=== PATIENT | male | born 1940 | race Two or more races ===

== ENCOUNTER 2016-07-11 01:46 | Emergency (ER) | payer MEDICARE, MEDICAID ==
[~2016-07-11] VITALS: Ht 177.8 cm; Wt 57.2 kg
[2016-07-11] MEDS ORDERED: NKM (01:55)
[2016-07-11] MEDS ORDERED: BACTRIM DS TAB1 EAC1 ORAL (02:40)
--- NOTE | 2016-07-11 02:41 | Emergency Room Report ---
History of Present Illness General Chief Complaint: Upper Extremity Injury Source: Patient Present Illness HPI This is a 76-year-old male who is right-hand dominant. He presents with chief complaint of right index finger pain. Onset for last couple days. Worse in the last half day. Denies any fever chills denies any nausea vomiting. Denies any drainage. Pain is 5/10. Allergies: Coded Allergies: No Known Allergies (Unverified , 07/11/16) Patient History Past Medical History: see triage record, old chart reviewed Past Surgical History: other Pertinent Family History: none Social History: Denies: smoking Immunizations: other Reviewed Nursing Documentation: PMH: Agreed, PSxH: Agreed Nursing Documentation-PMH Past Medical History: No Stated History Review of Systems Eye: Denies: blurred vision, eye pain ENT: Denies: ear pain, nose congestion, throat swelling Respiratory: Denies: cough, shortness of breath Cardiovascular: Denies: chest pain, palpitations Gastrointestinal: Denies: abdominal pain, diarrhea, nausea, vomiting Musculoskeletal: Denies: back pain, joint pain Skin: Denies: rash Neurological: Denies: headache, numbness Endocrine: Denies: increased thirst, increased urine Hematologic/Lymphatic: Denies: easy bruising All Other Systems: negative except mentioned in HPI Physical Exam Vital Signs Date Time Temp Pulse Resp B/P Pulse Ox O2 Delivery O2 Flow Rate FiO2 07/11/16 01:49 98.6 80 18 151/84 99 Room Air vitals normal Sp02 EP Interpretation: reviewed, normal General Appearance: well appearing, no apparent distress, alert Head: normocephalic, atraumatic Eyes: bilateral eye EOMI, bilateral eye PERRL ENT: hearing grossly normal, normal pharynx Neck: full range of motion, supple, no meningismus Respiratory: chest non-tender, lungs clear, normal breath sounds Cardiovascular #1: regular rate, rhythm, no murmur Gastrointestinal: normal bowel sounds, non tender, no mass, no organomegaly, no bruit, non-distended Musculoskeletal: back normal, gait/station normal, normal range of motion, other - Right index finger: There is edema and swelling there is a paronychia. No felon. Sensation normal. Neurologic: alert, oriented x3 Psychiatric: mood/affect normal Skin: warm/dry Procedures Incision and Drainage Incision and Drainage : Consent: Verbal Blade Size: 11 I & D Procedure: betadine prep Wound Location: upper extremity Patient Tolerated: Well Complications: None Progress I soaked the patient's finger in a Betadine prep. Using 11 blade scalpel and run along the nail bed and there was moderate amount of pus expressed. Wound was irrigated. Patient tolerated procedure without a problem. Medical Decision Making Diagnostic Impression: Primary Impression: Paronychia of finger Qualified Codes: L03.011 - Cellulitis of right finger ER Course Patient presents with paronychia the finger. No foreign body or felon. He fell better now. We'll discharge home. Last Vital Signs Date Time Temp Pulse Resp B/P Pulse Ox O2 Delivery O2 Flow Rate FiO2 07/11/16 01:49 98.6 80 18 151/84 99 Room Air Status: improved Disposition: HOME, SELF-CARE Condition: Stable Scripts Trimethoprim/Sulfamethoxazole 160/800* (BACTRIM DS TABLET*) 1 Each Tablet 1 TAB ORAL Q12H, #14 TAB 0 Refills Prov: JENNIFER MATTSON M.D. 07/11/16 Additional Instructions: Keep wound clean. Soak in hydrogen peroxide and water twice a day. Follow up with your doctor in 7 days. Return if worse. JENNIFER MATTSON M.D. Jul 11, 2016 02:41
[2016-07-11] MEDS ORDERED: Bactrim DS (160mg/800mg) tab ORAL ONE (02:45)
[2016-07-11 02:55] VITALS: BP 137/76
[2016-07-11 03:03] VITALS: BP 137/76
== END 2016-07-11 02:58 | disposition home or self-care (01) ==
LOC: EMR 02:15
DX: L03.011 Cellulitis of right finger (principal)
CPT/HCPCS: 10060

== ENCOUNTER 2016-07-13 02:28 | Emergency (ER) | payer MEDICARE, MEDICAID ==
[~2016-07-13] VITALS: Ht 177.8 cm; Wt 57.2 kg
[~2016-07-13 02:28] MED LIST: BACTRIM DS TAB1 EAC1 ORAL; NKM
--- NOTE | 2016-07-13 03:14 | Emergency Room Report ---
History of Present Illness General Chief Complaint: Pain Source: Patient Present Illness HPI Patient had the incision and drainage of a paronychia. There is no intersection that was done at that time. It's closed off and also he has pain in the front part of his finger. He has been taking Bactrim twice a day. The fingers increased swelling. There is also pain there. Allergies: Coded Allergies: No Known Allergies (Unverified , 07/13/16) Patient History Past Medical History: see triage record Social History Narrative purple heart Reviewed Nursing Documentation: PMH: Agreed, PSxH: Agreed Nursing Documentation-PMH Past Medical History: No Stated History Review of Systems Constitutional: Denies: fever Musculoskeletal: Reports: see HPI Skin: Reports: see HPI Psychiatric: Denies: anxiety Neurological: Reports: see HPI Physical Exam Vital Signs Date Time Temp Pulse Resp B/P Pulse Ox O2 Delivery O2 Flow Rate FiO2 07/13/16 02:55 99.1 87 16 134/77 96 Room Air Procedures Incision and Drainage Incision and Drainage #1: Consent: Verbal Blade Size: wedge resection of nail with drainage I & D Procedure: betadine prep, gauze wick placed Wound Location: other - R index finger nail Wound's Depth, Shape: superficial Wound Explored: contaminated - pus expressed Anesthesia: 1% Lidocaine - digital block Splint Applied?: No Sling Applied?: Yes Patient Tolerated: Well Complications: None Incision and Drainage #2: Consent: Verbal Blade Size: 11 I & D Procedure: betadine prep, gauze wick placed Wound Location: other - R index finger Wound Explored: contaminated Anesthesia: other - digital block Splint Applied?: No Sling Applied?: Yes Patient Tolerated: Well Complications: None Medical Decision Making Diagnostic Impression: Primary Impression: Felon of finger Additional Impression: Paronychia Qualified Codes: L03.011 - Cellulitis of right finger ER Course Incised last night. Worsened. Evidence of felon. Needs wedge resection and more aggressive I and D of pulp of finger. As not drained completely, will do this and consider IV antibiotics if not gettin beter. Tolerated procedures well. Advised to return for drain replacement, continue antibiotic and might have to be admitted for ABx Last Vital Signs Date Time Temp Pulse Resp B/P Pulse Ox O2 Delivery O2 Flow Rate FiO2 07/13/16 04:50 81 16 132/89 100 Room Air 07/13/16 04:50 98.5 Status: improved Disposition: HOME, SELF-CARE Condition: Improved Scripts Oxycodone/Acetaminophen 5-325* (PERCOCET 5-325 MG TABLET*) 1 Each Tablet 1 TAB ORAL Q6H Y for For Pain, #8 TAB 0 Refills Prov: Joseph Shipley M.D. 07/13/16 Ibuprofen* (MOTRIN*) 600 Mg Tablet 600 MG ORAL Q6H Y for For Pain, #16 TAB Prov: Joseph Shipley M.D. 07/13/16 Joseph Shipley M.D. Jul 13, 2016 03:14
[2016-07-13] MEDS ORDERED: Lidocaine 1% MPF 10mg/ml 5ml INJ ONE (03:15)
[2016-07-13] MEDS ORDERED: IBUPROFEN600 MG ORAL (04:27)
[2016-07-13] MEDS ORDERED: PERCOCET 5-3251 EACH ORAL (04:27)
[2016-07-13 04:50] VITALS: BP 132/89
== END 2016-07-13 04:50 | disposition home or self-care (01) ==
LOC: EMR 03:12
DX: L03.011 Cellulitis of right finger (principal); Z88.0 Allergy status to penicillin
CPT/HCPCS: 10060; 99282

== ENCOUNTER 2016-07-14 05:56 | Emergency (ER) | payer MEDICARE, MEDICAID ==
[~2016-07-14] VITALS: Ht 177.8 cm; Wt 56.7 kg
[~2016-07-14 05:56] MED LIST changes: +IBUPROFEN600 MG ORAL; +PERCOCET 5-3251 EACH ORAL
[2016-07-14 05:59] VITALS: BP 100/58
[2016-07-14] MEDS ORDERED: Hydrogen Peroxide 120ml Bottle TOPIC ONE (06:15)
--- NOTE | 2016-07-14 06:50 | Emergency Room Report ---
History of Present Illness General Chief Complaint: Wound Recheck/Suture Removal Source: Patient Present Illness HPI Patient had I and D of paronychium and felon yesterday. Here for repacking an re-evaluation. No fevers. Pain is better. Allergies: Coded Allergies: No Known Allergies (Unverified , 07/13/16) Patient History Past Medical History: see triage record Social History Narrative purple heart Reviewed Nursing Documentation: PMH: Agreed, PSxH: Agreed Nursing Documentation-PMH Past Medical History: No Stated History Review of Systems Constitutional: Denies: chills, fever Musculoskeletal: Reports: see HPI Skin: Reports: see HPI Neurological: Reports: see HPI, Denies: numbness Physical Exam Vital Signs Date Time Temp Pulse Resp B/P Pulse Ox O2 Delivery O2 Flow Rate FiO2 07/14/16 05:59 98.4 89 14 100/58 95 Room Air Procedures Additional Procedure Procedure Narrative repacking of abscesses. Irrigation with pus. Cleared with NS irrigation. Improved and tolerated well. Medical Decision Making Diagnostic Impression: Primary Impression: Felon of finger Additional Impressions: Paronychia Qualified Codes: L03.011 - Cellulitis of right finger Wound repacking ER Course Patient post I and D of paronychia and felon. Here for repacking. Repacked. Tolerated well. Wound improving with local care and oral antibiotics. No need for IV antibiotics. Patient stable for outpatient observation and treatment. Status: improved Disposition: HOME, SELF-CARE Condition: Improved Patient Instructions: Abscess, Wound Check Additional Instructions: Return tomorrow for repacking. Dr. Griffith will be here at 14:00 (2 pm). You can fill the pain pills if you want. Continue the antibiotics. Joseph Shipley M.D. Jul 14, 2016 06:50
[2016-07-14 07:21] VITALS: BP 105/61
[2016-07-15] MEDS ORDERED: AUGMENTIN 875-1 EAC1 ORAL (15:03)
== END 2016-07-14 07:22 | disposition home or self-care (01) ==
LOC: EMR 07:15
DX: L03.011 Cellulitis of right finger (principal); Z48.03 Encounter for change or removal of drains
CPT/HCPCS: 99282

== ENCOUNTER 2016-07-15 14:11 | Emergency (ER) | payer MEDICARE, MEDICAID ==
[~2016-07-15] VITALS: Ht 177.8 cm; Wt 57.2 kg
[2016-07-15] MEDS ORDERED: AUGMENTIN 875-1 EAC1 ORAL (15:03)
[2016-07-15 15:30] VITALS: BP 121/78
--- NOTE | 2016-07-18 21:10 | Emergency Room Report ---
History of Present Illness General Chief Complaint: Upper Extremity Injury Source: Patient Present Illness HPI Patient is a 76-year-old male who presented for recheck of the incision. Patient had a recent incision and drainage of a felon. Patient reported having some continued pain and swelling. He denied any fever. Patient had been taking Bactrim. The patient had continued to have some discomfort. He is advised to return for wound recheck as he had no primary care physician. Allergies: Coded Allergies: No Known Allergies (Unverified , 07/13/16) Patient History Past Medical History: see triage record Reviewed Nursing Documentation: PMH: Agreed, PSxH: Agreed Nursing Documentation-PMH Past Medical History: No Stated History Review of Systems All Other Systems: negative except mentioned in HPI Physical Exam Vital Signs Date Time Temp Pulse Resp B/P Pulse Ox O2 Delivery O2 Flow Rate FiO2 07/15/16 14:31 97.5 78 18 97/67 98 Room Air General Appearance: well appearing, no apparent distress, alert, GCS 15 Head: normocephalic, atraumatic ENT: hearing grossly normal, normal voice Neck: full range of motion, supple Respiratory: no respiratory distress, speaking full sentences Cardiovascular #1: normal inspection, normal peripheral pulses, regular rate, rhythm Gastrointestinal: normal inspection, normal bowel sounds, non tender, soft Musculoskeletal: normal inspection, swelling - minimal swelling Neurologic: normal inspection, alert, oriented x3, normal gait Psychiatric: mood/affect normal Skin: no rash, other - packing removed with purulent drainage Medical Decision Making Diagnostic Impression: Primary Impression: Wound check, abscess ER Course Patient presented for wound check. Differential diagnosis included was not limited to worsening infection, osteomyelitis, cellulitis among others. The patient appeared to have a similar appearance to previous visit which showed no marked erythema. There was some continued purulent drainage. There is no edema or erythema. The patient's wound was cleansed. Packing was removed. The patient given prescription for additional antibiotics. The patient did not appear to require inpatient antibiotics at this time. The patient is advised to follow up with hand specialist or to have the wound rechecked in 2 days. Patient is advised to return if any worsening condition or if any changes in status that are concerning. Last Vital Signs Date Time Temp Pulse Resp B/P Pulse Ox O2 Delivery O2 Flow Rate FiO2 07/15/16 15:30 74 12 121/78 96 Room Air 07/15/16 15:30 97.3 Status: improved Disposition: HOME, SELF-CARE Condition: Stable Scripts Amoxicillin/Potassium Clav 875-125* (AUGMENTIN 875-125 TABLET*) 1 Each Tablet 1 TAB ORAL TWICE A DAY, #20 TAB Prov: Kade Griffith 07/15/16 Referrals: LACY PADRON M.D. NOT CHOSEN IPA/,REFERRING (PCP) Patient Instructions: Wound Check Additional Instructions: Follow up for wound recheck in 2 days Kade Griffith Jul 18, 2016 21:10
== END 2016-07-15 15:30 | disposition home or self-care (01) ==
LOC: EMR 14:50
DX: Z48.01 Encounter for change or removal of surgical wound dressing (principal); L02.519 Cutaneous abscess of unspecified hand
CPT/HCPCS: 99282